=== PATIENT | female | born 1965 | race African-American/Black ===

== ENCOUNTER → 2017-06-09 | Outpatient (CLI) | payer OTHER ==
[~2017-06-09] MED LIST: AMARYL1 MG PO; AMARYL2 MG PO; CARISOPRODOL 3350 MG PO; GLUCOPHAGE500 MG PO; HYDROCHLOROTHIA25 M2 PO; IBUPROFEN 800800 M1 PO; LANTUS100 UNIT/M SUBQ; LOVASTAT10 PO; NORCO 5-325 TA1 EACH PO; NOVOLOG100 UNIT/1 SQ; PERCOCET 5-3251 EACH PO; PRILOSEC40 MG PO; TRAMADOL 50 MG50 MG PO
== END ==
LOC: RAD 11:28
DX: Z12.31 Encounter for screening mammogram for malignant neoplasm of breast (principal)

== ENCOUNTER → 2019-08-22 | Outpatient (CLI) | payer OTHER | LOC: RAD 12:32 | DX: Z12.31 Encounter for screening mammogram for malignant neoplasm of breast (principal) ==

== ENCOUNTER → 2019-08-23 | Outpatient (CLI) | payer OTHER | LOC: RAD 14:05 | DX: R92.2 Inconclusive mammogram (principal) ==

== ENCOUNTER → 2020-11-05 | Outpatient (CLI) | payer OTHER | LOC: RAD 09:55 | DX: Z12.31 Encounter for screening mammogram for malignant neoplasm of breast (principal) ==